=== PATIENT | female | born 1955 | race Caucasian/White ===

== ENCOUNTER → 2018-06-23 | Outpatient (CLI) | payer OTHER ==
--- NOTE | 2018-06-23 15:21 | CARD ---
MR#: [id number] Date of Study: 06/23/2018 Ordering Physician: FRANCIS HENNING, Referring Physician: FRANCIS HENNING, Tech: Elizabeth Espinosa APPROVED REPORT EXAM: Two-dimensional and M-mode echocardiogram with Doppler and color Doppler. Other Information Quality : GoodHR: 58bpm Rhythm : NSR INDICATION Palpitations RISK FACTORS Hypertension Hyperlipidemia 2D DIMENSIONS RVDd2.7 (2.9-3.5cm)Left Atrium(2D)3.2 (1.6-4.0cm) IVSd0.7 (0.7-1.1cm)Aortic Root(2D)2.9 (2.0-3.7cm) LVDd4.6 (3.9-5.9cm)LVOT Diameter1.9 (1.8-2.4cm) PWd0.8 (0.7-1.1cm)LVDs2.9 (2.5-4.0cm) FS (%) 37.1 %SV64.1 ml LVEF(%)67.1 (>50%) Aortic Valve AoV Peak Landry.118.8cm/sAoV VTI25.1cm AO Peak GR.5.6mmHgLVOT Peak Landry.83.6cm/s AO Mean GR.3mmHgAVA (VMAX)2.07cm2 Mitral Valve MV E Ljxpdbqb43.9cm/sMV DECEL [id number] MV A Elvwflyt74.5cm/sE/A Ratio1.4 Pulmonary Valve PV Peak Zauuaolq54.1cm/s Tricuspid Valve TR P. Xlvhwfcq885ez/sRAP LFBICBEP0giMc TR Peak Gr.69ekMeWYEJ60ilSt Pulmonary Vein S1 Cyekulpk46.0cm/sD2 Aiekhbbv89.6cm/s PVa msmpkvjf116fhyz LEFT VENTRICLE The left ventricle is normal size. There is normal left ventricular wall thickness. The left ventricu lar systolic function is normal. The Ejection Fraction is 60-65%. There is normal LV segmental wall m otion. The left ventricular diastolic function and filling is normal for age. RIGHT VENTRICLE The right ventricle is normal size. There is normal right ventricular wall thickness. The right ventr icular systolic function is normal. ATRIA The left atrium size is normal. The right atrium size is normal. The interatrial septum is intact wit h no evidence for an atrial septal defect or patent foramen ovale as noted on 2-D or Doppler imaging. AORTIC VALVE The aortic valve is normal in structure and function. Doppler and Color Flow revealed trace aortic re gurgitation. There is no significant aortic valvular stenosis. MITRAL VALVE The mitral valve is normal in structure and function. There is no mitral valve stenosis. Doppler and Color-flow revealed mild mitral regurgitation. TRICUSPID VALVE The tricuspid valve is normal in structure and function. Doppler and Color Flow revealed trace tricus pid regurgitation. There is no tricuspid valve stenosis. PULMONIC VALVE The pulmonary valve is normal in structure and function. Doppler and Color Flow revealed trace pulmon ic valvular regurgitation. GREAT VESSELS The aortic root is normal in size. Normal pulmonary venous flow (Doppler). The IVC is normal in size and collapses >50% with inspiration. PERICARDIAL EFFUSION There is no evidence of significant pericardial effusion. Critical Notification Critical Value: No <Conclusion> The left ventricular systolic function is normal. The Ejection Fraction is 60-65%. There is normal LV segmental wall motion. Mild mitral regurgitation. There is no evidence of significant pericardial effusion. Signed by : Chuck Justin, Electronically Approved : 06/23/2018 15:20:34
== END | disposition home or self-care (01) ==
LOC: ECHO 13:34
PROVIDERS: ATTEND Internal Medicine Cardiovascular Disease
DX: I34.0 Nonrheumatic mitral (valve) insufficiency (principal); I10 Essential (primary) hypertension; E78.5 Hyperlipidemia, unspecified
CPT/HCPCS: 93306